=== PATIENT | female | born 2000 | race Caucasian/White ===

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

== ENCOUNTER 2020-06-19 18:09 | Emergency (ER) | payer OTHER ==
[2020-06-19 18:30] VITALS: BP 99/61; PULSE 88; TEMP 98.3; BMI 20.7
[2020-06-19] MEDS ORDERED: ONDANSETRON *ODT* 4 MG TABLET SL ONE (19:27)
[2020-06-19 19:35] LABS: HCG,QUALITATIVE URINE Negative
[2020-06-19] MEDS ORDERED: ONDANSETRON *ODT* 4 MG TABLET ONE (20:35)
[2020-06-19 20:39] LABS: URINE APPEARANCE Clear; URINE BILIRUBIN Negative (NEGATIVE); URINE COLOR Yellow; URINE GLUCOSE (UA) Negative (NEGATIVE); URINE KETONE 1+ (NEGATIVE); URINE LEUK ESTERASE Negative (NEGATIVE); URINE NITRITE Negative (NEGATIVE); URINE PROTEIN Negative (NEGATIVE)
[2020-06-19 22:17] LABS: EPI CELLS 167.3 /uL (0-25.1); URINE RBC 21.5 /uL (0-23.9); URINE WBC 65.7 /uL (0-25.8)
[2020-06-19 22:18] LABS: HYALINE CASTS 14.51 /uL (0-3.1); URINE BACTERIA 1289.5 /uL (0-1359)
== END 2020-06-19 21:42 | disposition home or self-care (01) ==
LOC: JER 18:09 → JERFT 18:09
DX: R10.2 Pelvic and perineal pain (principal)
CPT/HCPCS: 36415; 81003; 84703; 87070; 87086; 87205; 87491; 87591; 99283-25; C9803; Q0162; U0003

== ENCOUNTER 2022-03-01 02:51 | Emergency (ER) | payer OTHER ==
[2022-03-01 03:03] VITALS: BP 101/61; PULSE 60; RESP 18; TEMP 98.1; BMI 21.2
== END 2022-03-01 03:54 | disposition left against medical advice (07) ==
LOC: JER 02:51
DX: M79.675 Pain in left toe(s) (principal)
CPT/HCPCS: 99281-25

== ENCOUNTER 2022-07-03 22:30 | Emergency (ER) | payer OTHER ==
[2022-07-03 22:39] VITALS: BP 100/66; PULSE 73; RESP 18; TEMP 98.1; BMI 21.2
== END 2022-07-03 23:49 | disposition home or self-care (01) ==
LOC: JER 22:30
DX: Z32.01 Encounter for pregnancy test, result positive (principal)
CPT/HCPCS: 84703; 99283-25

== ENCOUNTER 2022-07-18 22:06 | Emergency (ER) | payer OTHER ==
[2022-07-18 22:16] VITALS: BP 110/71; PULSE 68; RESP 18; TEMP 98.3; BMI 18.8
[2022-07-18 23:17] LABS: BASO % 1.1 % (0-2.0); EOS % 2.1 % (0-4.5); HEMATOCRIT 35.4 % (32.4-45.2); LYMPH % 31.2 % (8-40); MCH 30.8 pg (25.7-33.7); MEAN CELL VOLUME 90.7 fl (80-96); MEAN PLT VOLUME 8.2 fl (7.5-11.1); MONO % 6.7 % (3.8-10.2); NEUT % 58.9 % (42.8-82.8); PLATELET COUNT 354 10^3/uL (134-434); RDW 13.7 % (11.6-15.6); WHITE BLOOD COUNT 9.8 K/mm3 (4.0-10.0)
[2022-07-18 23:35] LABS: CALCIUM 8.6 mg/dL (8.5-10.1)
[2022-07-18 23:37] LABS: ALBUMIN 3.5 g/dl (3.4-5.0); BLOOD UREA NITROGEN 9.5 mg/dL (7-18)
[2022-07-18 23:40] LABS: CREATININE 0.7 mg/dL (0.55-1.3)
[2022-07-18 23:41] LABS: BILIRUBIN,TOTAL 0.4 mg/dL (0.2-1); TOT PROT 7.3 g/dl (6.4-8.2)
[2022-07-19 01:51] LABS: PH,URINE 5.5 (5.0-8.0); URINE APPEARANCE CLEAR; URINE BILIRUBIN NEGATIVE (NEGATIVE); URINE COLOR YELLOW; URINE GLUCOSE (UA) NEGATIVE (NEGATIVE); URINE KETONE TRACE (NEGATIVE); URINE LEUK ESTERASE NEGATIVE (NEGATIVE); URINE NITRITE NEGATIVE (NEGATIVE); URINE PROTEIN TRACE (NEGATIVE)
== END 2022-07-19 02:38 | disposition home or self-care (01) ==
LOC: JER 22:06
DX: O46.91 Antepartum hemorrhage, unspecified, first trimester (principal); Z3A.01 Less than 8 weeks gestation of pregnancy
CPT/HCPCS: 36415; 76801-TC; 80053; 81003; 84702; 85025; 86850; 86900; 86901; 87086; 99284-25

== ENCOUNTER 2022-08-13 20:48 | Emergency (ER) | payer OTHER ==
[2022-08-13 21:01] VITALS: BP 109/60; PULSE 64; RESP 18; TEMP 98.1; BMI 18.8
[2022-08-13] MEDS ORDERED: LIDOCAINE 2.5%/PRILOCAINE 2.5% (5 Gram/TUBE) TP ONE (23:55)
[2022-08-13] MEDS ORDERED: CEPHALEXIN MONOHYDRATE 500 MG CAPSULE (UD) PO ONE (23:59)
[2022-08-14] MEDS ORDERED: LIDOCAINE 2.5%/PRILOCAINE 2.5% 30 GRAM TUBE TP ONE
[2022-08-14] MEDS ORDERED: CEPHALEXIN MONOHYDRATE 500 MG CAPSULE (UD) ONE (00:02)
[2022-08-14] MEDS ORDERED: LIDOCAINE 2%/EPINEPHRINE 1:100000 (50 ML MD VIAL) INF ONE (00:07)
== END 2022-08-14 01:01 | disposition home or self-care (01) ==
LOC: JERFT 20:48 → JER 20:48
PROC: 0W9N0ZZ Drainage of Female Perineum, Open Approach (ICD-10-PCS; principal; 2022-08-13)
DX: N76.4 Abscess of vulva (principal)
CPT/HCPCS: 87070; 87076; 87205; 99283-25

== ENCOUNTER 2022-09-17 22:24 | Emergency (ER) | payer OTHER ==
[2022-09-17 22:30] VITALS: BP 99/67; PULSE 81; RESP 18; TEMP 97; BMI 18.8
[2022-09-17] MEDS ORDERED: SODIUM PHOSPHATE/NA BIPHOS 133 ML ENEMA PR ONE (23:17)
== END 2022-09-18 00:47 | disposition home or self-care (01) ==
LOC: JER 22:24
DX: O99.612 Diseases of the digestive system complicating pregnancy, second trimester (principal); K59.00 Constipation, unspecified; Z3A.14 14 weeks gestation of pregnancy
CPT/HCPCS: 99283-25

== ENCOUNTER 2023-03-23 09:10 | Inpatient (IN) | payer OTHER ==
[2023-03-23] MEDS ORDERED: ELECTROLYTE-148 SOLN 1,000 ML IV SCH (10:15)
[2023-03-23] MEDS ORDERED: OXYTOCIN 30 UNITS in 0.9% NS 30 UNIT/500 ML INFUS.BAG IVPB SCH (10:15)
[2023-03-23 11:40] LABS: BASO % 0.4 % (0-2.0); EOS % 0.6 % (0-4.5); HEMATOCRIT 35.2 % (32.4-45.2); HEMOGLOBIN 11.8 GM/dL (10.7-15.3); LYMPH % 26.2 % (8-40); MCH 31.4 pg (25.7-33.7); MCHC 33.6 g/dl (32.0-36.0); MEAN CELL VOLUME 93.6 fl (80-96); MONO % 8.7 % (3.8-10.2); NEUT % 64.1 % (42.8-82.8); PLATELET COUNT 282 10^3/uL (134-434); RBC 3.76 M/mm3 (3.60-5.2); RDW 14.1 % (11.6-15.6); WHITE BLOOD COUNT 10.1 K/mm3 (4.0-10.0)
[2023-03-23 11:52] VITALS: BMI 26.4
[2023-03-23 12:06] LABS: INR 0.96 (0.83-1.09); PROTHROMBIN TIME (PATIENT) 11.1 SEC (9.7-13.0)
[2023-03-23 12:30] LABS: POTASSIUM 4.3 mmol/L (3.5-5.1)
[2023-03-23 12:32] LABS: CALCIUM 9.2 mg/dL (8.5-10.1)
[2023-03-23 12:33] LABS: BLOOD UREA NITROGEN 8.6 mg/dL (7-18)
[2023-03-23 12:36] LABS: CREATININE 0.4 mg/dL (0.55-1.3)
[2023-03-23] MEDS ORDERED: FENTANYL/BUPIVACAINE/NS/PF - PCEA - 50 ML DISP.SYRIN EP ONE ×2 (13:41→19:04)
[2023-03-23] MEDS ORDERED: NALOXONE HCL 0.4 MG/ML VIAL IVPUSH PRN (13:49)
[2023-03-23] MEDS ORDERED: BUPIVACAINE HCL/PF 0.25% (2.5MG/ML) 10 ML VIAL ONE ×2 (13:51→20:17)
[2023-03-23] MEDS ORDERED: FENTANYL CITRATE/PF 50 MCG/ML VIAL ONE ×3 (13:51→21:44)
[2023-03-23] MEDS ORDERED: FENTANYL/BUPIVACAINE/NS/PF - PCEA - 50 ML DISP.SYRIN EP SCH (14:00)
[2023-03-23] MEDS ORDERED: AMPICILLIN - 2 GM in SODIUM CHLORIDE 100 ML IVPB ONE (15:00)
[2023-03-23] MEDS ORDERED: AMPICILLIN SODIUM 2 GM VIAL ONE (16:17)
[2023-03-23] MEDS: AMPICILLIN - 1 GM in SODIUM CHLORIDE 100 ML IVPB SCH ×2 (16:20→19:35)
[2023-03-23] MEDS ORDERED: AMPICILLIN SODIUM 1 GM VIAL ONE (19:36)
[2023-03-23] MEDS ORDERED: LIDOCAINE HCL/EPINEPHRINE/PF 10 ML VIAL ONE ×2 (20:35→21:38)
[2023-03-23] MEDS ORDERED: OXYTOCIN 10 UNITS/ML VIAL ONE (21:52)
[2023-03-23] MEDS ORDERED: ceFAZolin SODIUM 1 GM VIAL ONE (21:52)
[2023-03-23] MEDS ORDERED: morphine SULFATE/PF 1 MG/2 ML (2cc Syringe - QUVA) ONE (21:52)
[2023-03-23] MEDS ORDERED: METHYLERGONOVINE MALEATE 0.2 MG/1 ML AMP IM PRN (22:12)
[2023-03-23] MEDS ORDERED: IBUPROFEN 800 MG/8 ML IJ IVPB PRN (22:12)
[2023-03-23] MEDS ORDERED: PROMETHAZINE HCL 25 MG/1 ML VIAL ONE (22:21)
[2023-03-23] MEDS: OXYTOCIN 20 UNITS in 0.9% NS 20 UNIT/1,000 ML INFUS.BAG IV SCH (22:25)
[2023-03-23] MEDS ORDERED: OXYTOCIN 20 UNITS in 0.9% NS 20 UNIT/1,000 ML INFUS.BAG IV ONE (22:36)
[2023-03-24] MEDS ORDERED: IBUPROFEN 800 MG/8 ML IJ IVPB ONE (00:07)
[2023-03-24] MEDS: AMPICILLIN - 1 GM in SODIUM CHLORIDE 100 ML IVPB SCH (00:43)
[2023-03-24 07:54] LABS: BASO % 0.1 % (0-2.0); EOS % 0.1 % (0-4.5); MCH 32.1 pg (25.7-33.7); MCHC 34.4 g/dl (32.0-36.0); MEAN CELL VOLUME 93.4 fl (80-96); MEAN PLT VOLUME 8.7 fl (7.5-11.1); NEUT % 81.8 % (42.8-82.8); PLATELET COUNT 228 10^3/uL (134-434); RBC 3.42 M/mm3 (3.60-5.2); RDW 14.4 % (11.6-15.6)
[2023-03-24] MEDS: SIMETHICONE 80 MG TAB.CHEW (FP) PO PRN ×2 (08:04→19:33)
[2023-03-24] MEDS: IBUPROFEN 600 MG TABLET (FP) PO PRN ×2 (08:04→23:50)
[2023-03-24] MEDS: OXYTOCIN 20 UNITS in 0.9% NS 20 UNIT/1,000 ML INFUS.BAG IV SCH (08:06)
[2023-03-24] MEDS: ACETAMINOPHEN 325 MG TABLET (FP) PO PRN (09:12)
[2023-03-24] MEDS: PRENATAL VITAMINS W/ FOLIC ACID TABLET (FP) PO SCH (09:59)
[2023-03-24] MEDS: FERROUS SO4 325 MG TABLET (FP) PO SCH ×2 (09:59→22:17)
[2023-03-24] MEDS: oxyCODONE HCL 5 MG TABLET PO PRN (19:33)
[2023-03-24] MEDS ORDERED: BISACODYL 10 MG SUPP.RECT RC PRN (22:12)
[2023-03-25] MEDS: ACETAMINOPHEN 325 MG TABLET (FP) PO PRN (01:37)
[2023-03-25 02:22] LABS: BASO % 0.2 % (0-2.0); HEMATOCRIT 31.3 % (32.4-45.2); HEMOGLOBIN 10.3 GM/dL (10.7-15.3); LYMPH % 9.2 % (8-40); MCH 30.9 pg (25.7-33.7); MCHC 32.9 g/dl (32.0-36.0); MEAN CELL VOLUME 93.8 fl (80-96); MEAN PLT VOLUME 8.5 fl (7.5-11.1); MONO % 4.8 % (3.8-10.2); NEUT % 85.8 % (42.8-82.8); PLATELET COUNT 252 10^3/uL (134-434); RBC 3.33 M/mm3 (3.60-5.2); RDW 14.3 % (11.6-15.6); WHITE BLOOD COUNT 17.2 K/mm3 (4.0-10.0)
[2023-03-25] MEDS: oxyCODONE HCL 5 MG TABLET PO PRN (04:11)
[2023-03-25] MEDS: IBUPROFEN 600 MG TABLET (FP) PO PRN ×2 (07:17→18:42)
[2023-03-25] MEDS: SIMETHICONE 80 MG TAB.CHEW (FP) PO PRN ×2 (07:22→18:42)
[2023-03-25 08:56] LABS: EPI CELLS >36 /uL (0-25.1); HYALINE CASTS 1 /uL (0-3.1); URINE APPEARANCE CLOUDY; URINE BACTERIA 95 /uL (0-1359); URINE BILIRUBIN NEGATIVE (NEGATIVE); URINE COLOR YELLOW; URINE GLUCOSE (UA) NEGATIVE (NEGATIVE); URINE KETONE 3+ (NEGATIVE); URINE LEUK ESTERASE 2+ (NEGATIVE); URINE NITRITE NEGATIVE (NEGATIVE); URINE PROTEIN 1+ (NEGATIVE); URINE RBC 3682 /uL (0-23.9); URINE WBC 437 /uL (0-25.8)
[2023-03-25] MEDS: PRENATAL VITAMINS W/ FOLIC ACID TABLET (FP) PO SCH (09:55)
[2023-03-25] MEDS: FERROUS SO4 325 MG TABLET (FP) PO SCH ×2 (09:55→21:46)
[2023-03-25] MEDS: PIPERACILLIN/TAZOB 3.375 GM 3.375 GM in DEXTROSE 5%-WATER - 50 ML IVPB SCH ×2 (13:36→17:51)
[2023-03-26] MEDS: SIMETHICONE 80 MG TAB.CHEW (FP) PO PRN ×3 (01:42→20:45)
[2023-03-26] MEDS: IBUPROFEN 600 MG TABLET (FP) PO PRN ×2 (01:42→20:44)
[2023-03-26] MEDS: PIPERACILLIN/TAZOB 3.375 GM 3.375 GM in DEXTROSE 5%-WATER - 50 ML IVPB SCH ×4 (01:46→19:58)
[2023-03-26 08:56] LABS: BASO % 0.1 % (0-2.0); EOS % 1.8 % (0-4.5); HEMATOCRIT 28.4 % (32.4-45.2); HEMOGLOBIN 9.5 GM/dL (10.7-15.3); LYMPH % 14.7 % (8-40); MCH 31.3 pg (25.7-33.7); MCHC 33.3 g/dl (32.0-36.0); MEAN PLT VOLUME 8.3 fl (7.5-11.1); MONO % 5.2 % (3.8-10.2); NEUT % 78.2 % (42.8-82.8); PLATELET COUNT 261 10^3/uL (134-434); RBC 3.02 M/mm3 (3.60-5.2); RDW 13.9 % (11.6-15.6); WHITE BLOOD COUNT 15.3 K/mm3 (4.0-10.0)
[2023-03-26] MEDS: PRENATAL VITAMINS W/ FOLIC ACID TABLET (FP) PO SCH (11:05)
[2023-03-26] MEDS: FERROUS SO4 325 MG TABLET (FP) PO SCH ×2 (11:06→22:00)
[2023-03-26] MEDS: oxyCODONE HCL 5 MG TABLET PO PRN (13:07)
[2023-03-26 14:47] VITALS: RESP 18
[2023-03-27] MEDS: PIPERACILLIN/TAZOB 3.375 GM 3.375 GM in DEXTROSE 5%-WATER - 50 ML IVPB SCH ×2 (01:56→10:50)
[2023-03-27 07:44] LABS: HEMATOCRIT 28.2 % (32.4-45.2); HEMOGLOBIN 9.6 GM/dL (10.7-15.3); MCH 31.7 pg (25.7-33.7); MCHC 33.9 g/dl (32.0-36.0); MEAN CELL VOLUME 93.6 fl (80-96); MEAN PLT VOLUME 8.2 fl (7.5-11.1); PLATELET COUNT 299 10^3/uL (134-434); RBC 3.01 M/mm3 (3.60-5.2); RDW 14.2 % (11.6-15.6); WHITE BLOOD COUNT 10.7 K/mm3 (4.0-10.0)
[2023-03-27 07:58] LABS: POTASSIUM 3.9 mmol/L (3.5-5.1)
[2023-03-27 07:59] LABS: BLOOD UREA NITROGEN 8.4 mg/dL (7-18); CALCIUM 8.3 mg/dL (8.5-10.1)
[2023-03-27 08:03] LABS: CREATININE 0.4 mg/dL (0.55-1.3)
[2023-03-27 10:04] LABS: ANISOCYTOSIS 1+; MACROCYTOSIS 0
[2023-03-27] MEDS: PRENATAL VITAMINS W/ FOLIC ACID TABLET (FP) PO SCH (10:50)
[2023-03-27] MEDS: FERROUS SO4 325 MG TABLET (FP) PO SCH (10:50)
[2023-03-27] MEDS: IBUPROFEN 600 MG TABLET (FP) PO PRN (11:11)
[2023-03-27] MEDS: SIMETHICONE 80 MG TAB.CHEW (FP) PO PRN (11:12)
[2023-03-27 11:38] VITALS: BP 100/59; PULSE 65; TEMP 98.1
[2023-03-27] MEDS ORDERED: AMOX TR/POT CLAV 875MG/125MG TABLETS (FP) PO SCH (17:30)
== END 2023-03-27 14:55 | disposition home or self-care (01) | DRG 540 ==
LOC: JLDR 09:10 → J3W 03-24 02:00
PROVIDERS: ADMIT Obstetrics & Gynecology; ATTEND Obstetrics & Gynecology
PROC: 10D00Z1 Extraction of Products of Conception, Low, Open Approach (ICD-10-PCS; principal; 2023-03-23)
DX: O48.0 Post-term pregnancy (principal); O76 Abnormality in fetal heart rate and rhythm complicating labor and delivery; Z3A.41 41 weeks gestation of pregnancy; Z37.0 Single live birth; O86.4 Pyrexia of unknown origin following delivery; O86.20 Urinary tract infection following delivery, unspecified; B95.2 Enterococcus as the cause of diseases classified elsewhere; N39.0 Urinary tract infection, site not specified
CPT/HCPCS: 36415; 71046-TC-FY; 74018-TC-FY; 80048; 81003; 85025; 85610; 85730; 86780; 86850; 86900; 86901; 87040; 87086; 87186; 88307-TC

== ENCOUNTER 2024-10-05 16:02 | Emergency (ER) | payer OTHER ==
[2024-10-05 16:15] VITALS: BP 100/68; PULSE 108; RESP 18; TEMP 98.3; BMI 25.6
[2024-10-05] MEDS ORDERED: ACETAMINOPHEN INJECTION 100 ML ONE (17:38)
[2024-10-05] MEDS ORDERED: FAMOTIDINE 20 MG/50 ML IVPB 20 MG/50 ML MG IVPB ONE (17:38)
[2024-10-05] MEDS ORDERED: ONDANSETRON 4 MG/2 ML VIAL ONE (17:38)
[2024-10-05 17:41] LABS: ABSOLUTE IMMATURE GRANULOCYTES 0.09 x10^3/uL (0.0-0.031); BASOPHILS # 0.04 x10^3/uL (0.01-0.08); EOSINOPHIL % 0.3 % (0.7-5.8); EOSINOPHILS # 0.04 x10^3/uL (0.04-0.36); HEMATOCRIT 44.2 % (34.1-44.9); HEMOGLOBIN 14.1 g/dL (11.2-15.7); MCHC 31.9 g/dl (32.2-35.5); MEAN CELL VOLUME 89.7 fl (79.4-94.8); MEAN PLT VOLUME 10.1 fl (9.4-12.3); MONOCYTE # 0.61 x10^3/uL (0.24-0.86); MONOCYTE % 3.8 % (4.7-12.5); PLATELET COUNT 436 x10^3/uL (182-369); RDW 13.2 % (12.1-16.5)
[2024-10-05] MEDS: SODIUM CHLORIDE 0.9% 500 ML INFUS.BAG IV ONE (17:56)
[2024-10-05] MEDS: ACETAMINOPHEN 1000 MG/100 ML BAG IVPB ONE (17:57)
[2024-10-05] MEDS: FAMOTIDINE 20 MG/50 ML IVPB 20 MG/50 ML MG IVPB ONE (17:57)
[2024-10-05] MEDS: ONDANSETRON 4 MG/2 ML VIAL IVPUSH ONE (17:57)
[2024-10-05 18:06] LABS: CHLORIDE 108 mmol/L (98-107); POTASSIUM 4.9 mmol/L (3.5-5.1); SODIUM 137 mmol/L (136-145)
[2024-10-05 18:08] LABS: CALCIUM 10.3 mg/dL (8.5-10.1)
[2024-10-05 18:09] LABS: ALBUMIN 3.9 g/dl (3.4-5.0); ANION GAP 7 mmol/L (4-13); BLOOD UREA NITROGEN 12.7 mg/dL (7-18); CO2 22 mmol/L (21-32); GLUCOSE,RANDOM 95 mg/dL (74-106)
[2024-10-05 18:12] LABS: CREATININE 0.6 mg/dL (0.55-1.3); SGOT/AST 25 U/L (15-37); SGPT/ALT 30 U/L (13-61)
[2024-10-05 18:13] LABS: BILIRUBIN,TOTAL 0.6 mg/dL (0.2-1)
[2024-10-05 18:14] LABS: TOT PROT 8.5 g/dl (6.4-8.2)
[2024-10-05 18:15] LABS: ALK PHOS 135 U/L (45-117)
[2024-10-05 20:10] LABS: EPI CELLS 32 /uL (0-25.1); HYALINE CASTS 1 /uL (0-3.1); URINE APPEARANCE CLEAR; URINE BACTERIA 466 /uL (0-1359); URINE BILIRUBIN NEGATIVE (NEGATIVE); URINE COLOR YELLOW; URINE GLUCOSE (UA) NEGATIVE (NEGATIVE); URINE KETONE 1+ (NEGATIVE); URINE LEUK ESTERASE NEGATIVE (NEGATIVE); URINE NITRITE NEGATIVE (NEGATIVE); URINE PROTEIN NEGATIVE (NEGATIVE); URINE UROBILINOGEN 0.2 mg/dL (0.2-1.0); URINE WBC 20 /uL (0-25.8)
[2024-10-05 20:11] LABS: URINE RBC 37.6 /uL (0-23.9)
== END 2024-10-05 21:39 | disposition home or self-care (01) ==
LOC: JER 16:02
PROC: 3E033GC Introduction of Other Therapeutic Substance into Peripheral Vein, Percutaneous Approach (ICD-10-PCS; principal; 2024-10-05)
PROC: 3E033NZ Introduction of Analgesics, Hypnotics, Sedatives into Peripheral Vein, Percutaneous Approach (ICD-10-PCS; 2024-10-05)
PROC: 3E033GC Introduction of Other Therapeutic Substance into Peripheral Vein, Percutaneous Approach (ICD-10-PCS; 2024-10-05)
DX: K52.9 Noninfective gastroenteritis and colitis, unspecified (principal); R11.2 Nausea with vomiting, unspecified; R10.13 Epigastric pain
CPT/HCPCS: 36415; 76705-TC; 80053; 81003; 83690; 84702; 85025; 87086; 99285-25; J0131